=== PATIENT | male | born 1970 | race African-American/Black ===

== ENCOUNTER 2017-05-03 19:18 | Emergency (ER) | payer SELFPAY ==
[~2017-05-03] VITALS: Ht 182.9 cm; Wt 80.0 kg
[2017-05-03 19:20] VITALS: BP 128/85; PULSE 99; RESP 15; TEMP 98.7; O2SAT 96
--- NOTE | 2017-05-03 19:30 | PD ---
Physical Exam Date Seen by Provider: May 03, 2017 Time Seen by Provider: 19:29 Narrative 46 yo male here for evaluation of foot pain. has sores on both feet. Getting worst. Pain is 8/10. Ambulating but with limp. Going on for a week. Not seen anybody yet. Vitals are stable in triage. Awaiting bed placement. Data Data Last Documented VS Vital Signs Date Time Temp Pulse Resp B/P (MAP) Pulse Ox O2 Delivery O2 Flow Rate FiO2 05/03/17 19:20 98.7 99 15 128/85 (99) 96 Room Air [facility] Medical Record Reviewed: Yes Supervised Visit with DIANE: No Scripts No Active Prescriptions or Reported Meds Scott Aburto May 03, 2017 19:30
--- NOTE | 2017-05-03 21:45 | PD ---
HPI Chief Complaint: Skin Problem Time Seen by Provider: 21:36 Travel History International Travel<30 days: No Contact w/Intl Traveler<30days: No Traveled to known affect area: No History of Present Illness HPI 46-year-old black male presents to emergency Department with complaints of blistering and sores on his feet for several weeks to months. 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 They've become so sore at the end of the day he barely walk. He denies any direct trauma. No fever chills. No drainage. Symptoms are moderate. No alleviating factors. Exacerbated by sweat PFSH Past Medical History Narrative Medical Denies diabetes Diminished Hearing: No Headaches: Yes Immunizations Current: No Tetanus Vaccination: Unknown Influenza Vaccination: No Past Surgical History Appendectomy: Yes Social History Alcohol Use: Yes (daily ) Tobacco Use: Yes (1/2 ppd) Substance Use: Yes (marijuana) Allergies-Medications (Allergen,Severity, Reaction): Coded Allergies: No Known Allergies (Verified , 05/03/17) Reported Meds & Prescriptions Reported Meds & Active Scripts Active Review of Systems Except as stated in HPI: all other systems reviewed are Neg General / Constitutional: No: Fever, Chills HENT: No: Headaches, Lightheadedness Cardiovascular: No: Chest Pain or Discomfort, Palpitations Respiratory: No: Cough, Shortness of Breath Musculoskeletal: No: Arthralgias, Limited ROM Skin: Positive Rash, Positive Lesions Physical Exam Narrative GENERAL: This is a well-nourished, well-developed patient, in no apparent distress. SKIN: No rashes, ecchymoses or lesions. Warm and dry. HEAD: Atraumatic. Normocephalic. EYES: PERRL, EOMI, no discharge or injection. No scleral icterus. EARS: Clear NOSE: Nasal turbinates appear normal. THROAT: Mucosa pink and moist. Airway patent. NECK: Trachea midline. supple, moves head freely. LUNGS: Clear to auscultation. CV: Regular in rhythm. ABDOMEN: Soft nontender. EXT: No clubbing cyanosis or edema. Examination the bottom of both feet reveal maceration and thickening to the plantar services and between the toes consistent with foot fungus. Each foot has a large 2 cm warty-appearing lesion on the plantar surface of each foot. These are plantar warts Data Data Last Documented VS Vital Signs Date Time Temp Pulse Resp B/P (MAP) Pulse Ox O2 Delivery O2 Flow Rate FiO2 05/03/17 19:20 98.7 99 15 128/85 (99) 96 Room Air Orders Orders Ed Discharge Order (05/03/17 21:40) MDM Medical Decision Making Medical Screen Exam Complete: Yes Emergency Medical Condition: Yes Medical Record Reviewed: Yes Differential Diagnosis MDM: High Differential diagnoses: Abscess, folliculitis, cellulitis, lymphangitis, abrasion, contact dermatitis, tinea pedis, plantars wart Narrative Course Patient has tinea pedis and plantar warts Diagnosis Primary Impression: Tinea pedis Qualified Codes: B35.3 - Tinea pedis Additional Impression: Plantar wart of both feet Patient Instructions: General Instructions Additional Instructions: Rest. Keep your feet clean and dry. Bring several pairs of socks to work with you in change of frequently. Lamisil AT applied 3-4 times daily. Compound W to the warts daily and apply a piece of duct tape. Follow-up with a medical doctor or a patternmaker plastics in 2-3 weeks. Med/Other Pt SpecificInfo: No Meds Exist/No RX given Scripts No Active Prescriptions or Reported Meds Disposition: 01 DISCHARGE HOME Condition: Stable Víctor Stephenson May 03, 2017 21:45
== END 2017-05-03 21:57 | disposition home or self-care (01) ==
LOC: NEPK 19:18
DX: B35.3 Tinea pedis (principal); B07.0 Plantar wart; M79.671 Pain in right foot; M79.672 Pain in left foot; F17.200 Nicotine dependence, unspecified, uncomplicated
CPT/HCPCS: 99282